=== PATIENT | female | born 1980 | race Caucasian/White ===

== ENCOUNTER 2019-08-31 14:52 | Emergency (ER) | payer SELFPAY ==
[2019-08-31] MEDS ORDERED: diphenhydrAMINE 50 MG/ML VIAL ONE (15:27)
[2019-08-31] MEDS ORDERED: Metoclopramide HCl 10 MG/2 ML VIAL ONE (15:27)
--- NOTE | 2019-08-31 15:51 | CT ---
CT head noncontrast HISTORY: Trauma. Head injury. Headache. FINDINGS: There is no evidence of acute intracranial hemorrhage or infarct. The ventricles appear nor mal in size, shape and position. There is no mass effect or shift of midline structures. Visualized paranasal sinuses remain well aerated. IMPRESSION : No abnormalities are demonstrated.
== END 2019-08-31 16:44 | disposition home or self-care (01) ==
LOC: ERS 14:52
DX: S09.90XA Unspecified injury of head, initial encounter (principal); Y04.0XXA Assault by unarmed brawl or fight, initial encounter
CPT/HCPCS: 70450; 96374; 96375; J1200; J2765